=== PATIENT | male | born 1955 | race Caucasian/White ===

== ENCOUNTER 2017-01-21 23:43 | Emergency (ER) | payer MEDICAID ==
[~2017-01-21] VITALS: Ht 177.8 cm; Wt 75.0 kg
[2017-01-21 23:55] VITALS: BP 197/114; PULSE 83; RESP 19; O2SAT 96
--- NOTE | 2017-01-22 00:11 | ED.REPORT ---
HPI-Rash / Abscess Date of Service Jan 22, 2017 ED Provider: Rafiq Hurtado MD Pt is a 61 year old male with a hx of hip problems presenting to the ED complaining of a diffuse body rash onset 2 months ago, which he states has gotten into his eyes and impaired his vision. Associated symptoms include blurry vision, eye pain, right hip pain, fatigue, nausea, hematemesis, vomiting , recent weight loss, constipation, diarrhea, stool incontinence. Denies abdominal pain, bloody or tarry stool. Nursing Notes Stated Complaint: RASH Chief Complaint: Skin Rash/Abscess Nursing Notes Reviewed: Yes Allergies: Coded Allergies: No Known Allergies (Unverified , 01/21/17) Scheduled Omeprazole (Omeprazole) 20 Mg Tablet.dr 20 MG PO DAILY Triamcinolone Acet (Triamcinolone Acetonide Cream) 1 Applic/0.25 Gm Cr 1 APPLIC EXT BID Scheduled PRN Ondansetron ODT (Ondansetron ODT) 8 Mg Tab.rapdis 8 MG PO QID PRN PRN For Nausea General Time Seen by MD: 00:10 Chief Complaint Rash Hx Obtained From: Patient Arrived By: Walk-in Onset Occurred: More than a week ago... (2 months) Symptom Duration: Since onset Location: : Generalized: Lower extremity Quality: Painful Severity: Current: Severe Severity: Maximum: Severe Recent Healthcare: No recent doctor visit, No recent hospitalization Similar Sx Previous: No Past Medical History Past Medical History Reports a hx of hip pain Past Surgical History denies Smoking History Unknown if Ever Smoker Ambulatory Status Independent Review of Systems Constitutional: Reports: Fatigue Eyes: Reports: Blurred bilateral, Eye pain bilateral GI: Reports: Constipation, Diarrhea, Hematemesis, Nausea, Vomiting, Denies: Abdominal pain, Bloody/tarry stool Musculoskeletal: Reports: Joint pain Skin: Reports Rash Complete sys rev & neg: except as marked. Endocrine: Reports: Weight loss Neurologic: Reports: Bowel dysfunction Physical Exam Initial Vital Signs Vital Signs (First) Date Time Temp Pulse Resp B/P Pulse Ox O2 Delivery O2 Flow Rate FiO2 01/21/17 23:55 35.8 83 19 197/114 96 Room Air Initial VS: Reviewed Head / Eyes: Atraumatic, Normocephalic, PERRL ENT: Mucous membranes moist, Conjunctiva normal, No scleral icterus Neck: Supple, Non-tender, Full range of motion Respiratory: Breath sounds normal, Clear to auscultation, No respiratory distress Cardiovascular: Regular rate & rhythm, Heart sounds normal, Intact distal pulses Abdomen / GI: Soft, Non-tender, No guarding, No rebound, No distention Extremities: Vascular intact, Neuro intact, No swelling, No tenderness Neurologic: Alert, Oriented, Nonfocal Psychiatric: Mood/affect normal, Behavior normal, Normal thought content General/Constitutional: Awake, Alert Skin: Atraumatic Solar dermatosis Interpretation & Diagnostics Urine tox positive for TCA and marijuana CT ABD AND PELVIS: IMPRESSION: Hepatic steatosis. Nonspecific enteritis pattern. No appendicitis, diverticulitis, or mechanical small bowel obstruction. Other findings above. This report was transmitted to the emergency room at 01/22/2017 - 3:18:32 AM PDT. Lab Results Interpretation Result Diagram: 01/22/17 0103 01/22/17 0103 Test 01/22/17 01:03 01/22/17 02:25 White Blood Count 6.5th/mm3 (3.8-10.1) Red Blood Count 3.71mil/mm3 (4.40-5.80) Hemoglobin 13.7g/dL (13.8-17.2) Hematocrit 38.4% (41.0-50.0) Mean Corpuscular Volume 103.5fL (81-100) Mean Corpuscular Hemoglobin 36.9pg (27.0-35.0) Mean Corpuscular Hemoglobin Concent 35.7% (32.0-37.0) Red Cell Distribution Width 15.1% (12.3-15.4) Platelet Count 333bil/L (150-400) Neutrophils (%) (Auto) 51.2% (40-74) Lymphocytes (%) (Auto) 32.7% (14-46) Monocytes (%) (Auto) 13.0% (4-12) Eosinophils (%) (Auto) 2.0% (0-5) Basophils (%) (Auto) 0.9% (0-3) Erythrocyte Sedimentation Rate 37mm/hr (0-30) Prothrombin Time 10.0sec (8.1-12.5) Prothromb Time International Ratio 0.94ratio Sodium Level 140mEq/L (134-144) Potassium Level 2.7mEq/L (3.5-5.2) Chloride Level 94mEq/L (97-108) Carbon Dioxide Level 26mmol/L (18-29) Blood Urea Nitrogen 12mg/dL (8-27) Creatinine 0.70mg/dL (0.76-1.27) Estimat Glomerular Filtration Rate 122mL/min (>59) Glucose Level 76mg/dL (60-99) Lactic Acid Level 2.7mmol/L (0.4-2.0) Uric Acid 7.0mg/dL (2.6-7.2) Calcium Level 9.3mg/dL (8.5-10.1) Magnesium Level 1.7mg/dL (1.6-2.6) Total Bilirubin 0.6mg/dL (0.0-1.2) Aspartate Amino Transf (AST/SGOT) 96U/L (0-50) Alanine Aminotransferase (ALT/SGPT) 40U/L (0-44) Alkaline Phosphatase 130U/L (25-160) Troponin T 0.010ug/L (0.0-0.011) Total Protein 8.0g/dL (6.4-8.4) Albumin 3.6g/dL (3.4-5.0) Lipase 36U/L (13-60) Alcohols 202mg/dL (0-10) Urine Color Yellow (YELLOW) Urine Appearance Clear (CLEAR,HAZY) Urine pH 6.5 (5.0-8.0) Urine Specific [place] 1.015 (1.003-1.035) Urine Protein Tracemg/dL (NEG,TRACE) Urine Glucose (UA) Negativemg/dL (NEGATIVE) Urine Ketones Negativemg/dL (NEGATIVE) Urine Occult Blood Negative (NEGATIVE) Urine Nitrite Negative (NEGATIVE) Urine Bilirubin Negative (NEGATIVE) Urine Urobilinogen 1.0mg/dL (NORMAL) Urine Leukocyte Esterase Negative (NEGATIVE) Urine RBC 0-2/hpf (0-2) Urine WBC 0-5/hpf (0-5) Urine Epithelial Cells Occasional/hpf (NONE-MOD) Urine Crystals None seen (NONE SEEN) Urine Bacteria Few/hpf (NONE-FEW) Urine Hyaline Casts Occasional/lpf (NONE) Urine Granular Casts Occasional (NONE SEEN) Urine Waxy Casts None seen (NONE SEEN) Urine Red Blood Cell Casts None seen (NONE SEEN) Urine White Blood Cell Casts None seen (NONE SEEN) Urine Mucus None seen (None Seen) Urine Trichomonas None seen (NONE SEEN) Urine Yeast None (NONE SEEN) Urinalysis Comment None Urine Culture Reflexed Not indicated ECG Interpretation ECG Interpretation: Left axis deviation. Anteroseptal infarct, old. Prolonged QT interval. Time: 01:47 Interpreted by: ED physician Normal ECG Interpretation: Normal rate (83), Normal sinus rhythm X-Ray Chest Interpretation Chest Xray Interpretation: Thickening and scarring right apex. Cannot exclude a mass. View: AP & lat Interpretation / Wet Read by: Wet read ED physician Re-Eval/Medical Decision Med Decision/Clinical Course 61-year-old presents with multiple unrelated complaints. He has a significant rash on his arms and ankles that appears to be a solar dermatosis. Provided with Kenalog and advised to avoid sun. He is complaining of some visual blurring and has some mild swelling of the conjunctiva. Provided with Naphcon-A. He has numerous systemic symptoms including weight loss intermittent constipation and diarrhea. I suspect that poor diet and lifestyle and much to do with this, but concern remains for neoplastic causes, versus infectious, versus other metabolic issue. He has no evidence of diabetes. CT of abdomen and pelvis has no significant abnormality. He is referred to [facility] for follow-up. No acute issues identified tonight. Re-Evaluation/Progress : Time of Eval: 04:16 Patient Status: Condition improved Re-Evaluation/Progress Note: Discussed plan for discharge. Pt understands and agrees with plan. Counseled Regarding: Diagnosis, Lab results, Need for follow-up, When/why to return to ED Discharge & Departure Impression: Primary Impression: Chronic solar dermatitis Additional Impressions: Alcohol intoxication Complication of substance-induced condition: uncomplicated Qualified Code: F10.120 - Alcohol abuse with intoxication, uncomplicated Weight loss, non-intentional Disposition: Home Discharge Condition All VS Reviewed: Yes Condition: Improved Patient Instructions: Abuse of Alcohol (ED), Dermatitis (ED) Additional Instructions: For the skin rash, it is important that you protect your skin from the sun. Best would be just be to wear long sleeves. You can use sunscreen, but long sleeves are superior. Begin Kenalog cream twice daily to the affected areas. As for the weight loss, I do not find any significant cause on your CAT scan. Your labs are relatively benign, except for a low potassium, and an elevated alcohol level. You may use Zofran four times daily if needed for nausea. Begin Prilosec daily. Your chest x-ray shows some old scarring but no acute problems and no obvious tumors. Your situation needs follow-up in the clinic. Call [facility] for follow-up with Amber Anderson Your alcohol use is probably contributing to your problem. You may wish to consider entering detox. Referrals: Amber Anderson MD Attestation Portions of this note were transcribed by Catherine Sahu. I, Dr. Hurtado personally performed the history, physical exam and medical decision-making; I reviewed and confirmed the accuracy of the information in the transcribed note. Signed by: Stephane Mensah, 01/22/2017. copies to: Amber Anderson MD, Christopher W MD Jan 22, 2017 00:11 CATHERINE SAHU Jan 22, 2017 00:21
[2017-01-22] MEDS ORDERED: 0.9% Sodium Chloride 1,000 ML IV ONE (00:23)
[2017-01-22] MEDS ORDERED: Iohexol 300 mg/mL 30 mL Inj PO ONE (00:25)
[2017-01-22] MEDS ORDERED: Ondansetron 2 mg/mL 2 mL Inj IVPUSH ONE (00:25)
[2017-01-22 01:15] LABS: BASOPHILS % (AUTO) 0.9 % (0-3); Mean Corpuscular Hemoglobin 36.9 pg (27.0-35.0); Mean Corpuscular Volume 103.5 fL (81-100); NEUTROPHILS % (AUTO) 51.2 % (40-74); Platelet Count 333 bil/L (150-400)
[2017-01-22 01:31] LABS: INR 0.94 ratio
[2017-01-22 01:35] LABS: ERYTHROCYTE SEDIMENTATION RATE 37 mm/hr (0-30)
[2017-01-22 02:07] LABS: TROPONIN T 0.01 ug/L (0.0-0.011)
[2017-01-22 02:31] LABS: Magnesium 1.7 mg/dL (1.6-2.6)
[2017-01-22 02:36] LABS: APPEARANCE,URINE CLEAR (CLEAR,HAZY); COLOR,URINE YELLOW (YELLOW); OCCULT BLOOD,URINE NEGATIVE (NEGATIVE); PH,URINE 6.5 (5.0-8.0)
[2017-01-22] MEDS ORDERED: Triamcinolone 0.1% 30 Gm Cream TOPICAL SCH ×3 (04:05→05:00)
[2017-01-22] MEDS ORDERED: Potassium Chloride 20 mEq SR Tablet PO ONE (04:05)
[2017-01-22] MEDS ORDERED: KEN1C EXT (04:09)
[2017-01-22] MEDS ORDERED: OMEP20TA86 PO (04:11)
[2017-01-22] MEDS ORDERED: ONDA8TAB10 PO (04:12)
[2017-01-22 04:30] VITALS: BP 169/84; PULSE 97; RESP 20; O2SAT 96
[2017-01-22] MEDS ORDERED: Naphazoline/Pheniramine 5 mL Ophthalmic Solution BOTH_EYES PRN (05:05)
[2017-01-22] MEDS ORDERED: Naphazoline/Pheniramine 5 mL Ophthalmic Solution BOTH_EYES SCH (05:45)
--- NOTE | 2017-01-22 08:10 | DRSVH ---
PROCEDURE: CT ABDOMEN AND PELVIS WITH CONTRAST ([id number]) INDICATIONS: wt loss, vomiting TECHNIQUE: After the administration of intravenous contrast, 5 mm thick sections acquired from the diaphragm to the symphysis. 5 mm coronal and sagittal reformats were acquired. For radiation dose reduction, the following was used: automated exposure control, adjustment of mA and/or kV according to patient siz e. COMPARISON: None. FINDINGS: Image quality: Excellent. ABDOMEN: Lung bases: Lung bases are clear. Heart size is normal. Solid organs: Liver is enlarged. The spleen is normal in size. Prominent hepatic steatosis is prese nt. Gallbladder is unremarkable. Biliary system is non dilated. Pancreas enhances normally. No adr enal nodules. Kidneys demonstrate normal size and enhancement, without hydronephrosis. Peritoneum and bowel: Bowel loops are nonobstructed. There is a mild appearance of scattered thicken ing within portions of the small bowel. Descending and sigmoid colon are poorly distended, limiting e valuation. No free fluid or air. Nodes and vessels: No retroperitoneal or mesenteric adenopathy by size criteria. Aorta and inferior vena cava are normal in size. Miscellaneous: No ventral hernias. Moderate hiatal hernia. PELVIS: Genitourinary: Bladder wall thickness is normal. Miscellaneous: Fat-containing bilateral inguinal hernias. Bones: No suspicious bony lesions. No vertebral body compression fractures. IMPRESSION: 1. Hepatomegaly with steatosis. 2. Scattered areas of small bowel thickening, overall nonspecific. This could be related to arthritis . Dictated by: Yoon Bermudez M.D. on 01/22/2017 at 8:05 Approved by: Yoon Bermudez M.D. on 01/22/2017 at 8:09
--- NOTE | 2017-01-22 09:07 | DRSVH ---
PROCEDURE: X-RAY CHEST, TWO VIEWS ([id number]) INDICATIONS: weight loss TECHNIQUE: 2 views of the chest were acquired. COMPARISON: [facility], CT, CT ABD PELVIS W CON, 01/22/2017, 2:55. FINDINGS: Surgical changes and devices: None. Lungs and pleura: No pleural effusions or pneumothorax. Lungs are clear. Mediastinum: Mediastinal contours are normal. Heart size is normal. Bones and chest wall: No suspicious bony abnormalities. Soft tissues appear unremarkable. IMPRESSION: No acute pulmonary process. Dictated by: Yoon Bermudez M.D. on 01/22/2017 at 9:06 Approved by: Yoon Bermudez M.D. on 01/22/2017 at 9:06
== END 2017-01-22 05:53 | disposition home or self-care (01) ==
LOC: SED 23:55
DX: L57.8 Other skin changes due to chronic exposure to nonionizing radiation (principal); F10.120 Alcohol abuse with intoxication, uncomplicated; R63.4 Abnormal weight loss; M25.552 Pain in left hip; H53.8 Other visual disturbances; R53.83 Other fatigue
CPT/HCPCS: 36415; 71020; 74177; 80053; 81000; 81002; 83605; 83690; 83735; 84484; 84550; 85025; 85610; 85651; 86038; 86430; 87040; 93005; 96361; 96374; 99285; G0433; G0480; J2405; J7030; Q9967